=== PATIENT | male | born 1985 | race Caucasian/White ===

== ENCOUNTER 2019-04-10 10:16 | Outpatient (CLI) | payer BC ==
[2019-04-10 10:49] LABS: #Eosinphils 0.1 thou/uL (0.0-0.7); #Lymphocytes 2.7 thou/uL (1.20-3.40); #Monocytes 0.4 thou/uL (0.11-0.59); #Neutrophils 3.3 thou/uL (1.40-6.50); %Basophils 0.5 % (0.0-1.0); %Eosinophils 0.9 % (0.0-10.0); %Lymphocytes 41.4 % (21.0-51.0); %Monocytes 6.5 % (0.0-10.0); %Neutrophils 50.7 % (42.0-75.0); Hemoglobin 14.5 g/dL (14.0-18.0); Mean Corpuscular HGB CONC 33.7 g/dL (32.0-36.0); Mean Corpuscular Hemoglobin 28.4 pg (27.0-31.0); Mean Corpuscular Volume 84.2 fL (78.0-98.0); Mean Platelet Volume 8.2 fL (7.4-10.4); Platelet Count 296 thou/uL (130-400); RBC Distribution Width 12.2 % (11.5-14.5); Red Blood Cell (RBC) Count 5.09 mill/uL (4.70-6.10); White Blood Cell (WBC) Count 6.5 thou/uL (4.8-10.8)
[2019-04-10 11:09] LABS: ALT (SGPT) 57 U/L (8-55); AST (SGOT) 25 U/L (5-34); Albumin 4.6 g/dL (3.5-5.0); Alkaline Phosphatase 77 U/L (40-150); Anion Gap 13 mmol/L (10-20); BUN (Urea Nitrogen) 10 mg/dL (8.9-20.6); Calc. Creatinine Clearance 0 mL/min (70-130); Calcium 10.1 mg/dL (7.8-10.44); Carbon Dioxide 25 mmol/L (22-29); Chloride 107 mmol/L (98-107); Estimated GFR-MDRD Greater than 90; Globulin 2.8 g/dL (2.4-3.5); Glucose 99 mg/dL (70-105); Potassium 4.3 mmol/L (3.5-5.1); Protein, Total 7.4 g/dL (6.0-8.3); Sodium 141 mmol/L (136-145)
== END 2019-04-10 10:17 | disposition home or self-care (01) ==
LOC: EDSEX → LABBT 10:16
PROVIDERS: ATTEND Specialist
DX: Z01.812 Encounter for preprocedural laboratory examination (principal); K82.8 Other specified diseases of gallbladder
CPT/HCPCS: 80053; 85025

== ENCOUNTER 2019-04-14 11:29 | Day surgery (SDC) | payer BC ==
[2019-04-10 10:26] VITALS: BMI 34.4
[2019-04-14] MEDS ORDERED: Ketorolac Tromethamine 30 MG/ML VIAL ONE (12:22)
[2019-04-14] MEDS ORDERED: Bupivacaine/Epinephrine 0.25% 30 ML VIAL ONE (12:52)
[2019-04-14] MEDS ORDERED: Midazolam HCl 2 mg/2 ml Vial ONE (13:26)
[2019-04-14] MEDS ORDERED: Fentanyl 100 MCG/2 ML VIAL ONE ×3 (13:26→15:23)
[2019-04-14] MEDS ORDERED: Ondansetron PF 4 MG/2 ML Vial ONE (15:04)
[2019-04-14] MEDS ORDERED: PROPOFOL 200 MG/20 ML VIAL ONE (15:04)
[2019-04-14] MEDS ORDERED: Rocuronium Bromide 10 MG/ML (10ML VIAL) ONE (15:04)
[2019-04-14] MEDS ORDERED: Lidocaine 1% PF 5 ML VIAL ONE (15:04)
[2019-04-14] MEDS ORDERED: Dexamethasone 20 MG/5 ML VIAL ONE (15:04)
[2019-04-14] MEDS ORDERED: Glycopyrrolate 0.2 MG/ML 5 ML SYRINGE ONE (15:04)
[2019-04-14] MEDS ORDERED: Promethazine HCl 25 MG/ML VIAL ONE (17:20)
--- NOTE | 2019-04-15 10:20 | OP ---
DATE OF PROCEDURE: 04/14/2019 PREOPERATIVE DIAGNOSIS: Symptomatic gallbladder sludge. POSTOPERATIVE DIAGNOSIS: Symptomatic gallbladder sludge. OPERATION PERFORMED: Laparoscopic cholecystectomy. ANESTHESIA: General endotracheal. INDICATIONS FOR PROCEDURE: The patient is a 34-year-old male. He presents with symptoms referable to his gallbladder and ultrasound proven gallbladder sludge. He is taken to the operating room at this time for laparoscopic cholecystectomy. DESCRIPTION OF PROCEDURE: Informed consent was obtained. The patient was taken to the operating room where general endotracheal anesthesia was obtained with the patient in the supine position. The abdomen was prepped with Betadine and draped in the usual sterile fashion. 0.25% Marcaine with epinephrine was infiltrated below the umbilicus and a 10 mm infraumbilical incision was created. A Veress needle was passed through this incision into the peritoneal cavity. A pneumoperitoneum was established using carbon dioxide up to a pressure of 15 mmHg. Local anesthetic was infiltrated and 3 additional 5 mm right upper quadrant incisions were created. Through the mid incision, a 5 mm port was passed into the peritoneal cavity. The camera was passed through this port and under direct vision, an 11 port was passed through the infraumbilical incision. The camera was replaced through this port, and under direct vision, 2 additional 5 mm ports were passed through the incisions already created. The gallbladder was grasped and retracted in a cephalad direction. Minimal adhesions were bluntly stripped away from the apex of the gallbladder, and the apex was retracted laterally and inferiorly. Careful dissection was carried out to the apex of the gallbladder to identify the cystic duct and cystic artery. These were each carefully dissected circumferentially. The duct was of normal caliber. Both the duct and the artery were divided between clips, leaving 2 on the side to remain within the abdomen. The gallbladder was then dissected out of the gallbladder fossa using electrocautery and removed through the infraumbilical port site. The fascia was closed with 0 Vicryl suture and a GraNee needle. The right upper quadrant was inspected and irrigated. All irrigant was aspirated. All ports and instruments were removed under direct vision. Pneumoperitoneum was carefully evacuated. Additional local anesthetic was infiltrated into each port site. The skin edges were approximated with 4-0 Monocryl subcuticular sutures, and Dermabond was placed externally. There were no complications. The patient tolerated the procedure well and was taken to the recovery room in stable condition. FINDINGS: The patient's gallbladder was without significant inflammatory change. There were some gallbladder associated adhesions that were taken down uneventfully. The duct was small and noninflamed, and a cholangiogram was not obtained. Blood loss was essentially none. The patient tolerated the procedure well and was taken to recovery room in stable condition. Job ID: [id number]
== END 2019-04-14 17:30 | disposition home or self-care (01) ==
LOC: SDC 11:29
PROVIDERS: ATTEND Specialist
PROC: 0FT44ZZ Resection of Gallbladder, Percutaneous Endoscopic Approach (ICD-10-PCS; principal; 2019-04-14)
DX: K80.10 Calculus of gallbladder with chronic cholecystitis without obstruction (principal); K82.8 Other specified diseases of gallbladder; I10 Essential (primary) hypertension; E78.5 Hyperlipidemia, unspecified; Z79.899 Other long term (current) drug therapy
CPT/HCPCS: 88304; J0131; J0690; J1100; J1885; J2001; J2250; J2405; J2550; J2704; J3010